=== PATIENT | female | born 1965 | race Caucasian/White ===

== ENCOUNTER 2018-05-19 05:51 | Outpatient (CLI) | payer BC ==
[~2018-05-19] VITALS: Ht 162.6 cm; Wt 59.9 kg
[2018-05-19] MEDS ORDERED: ZOLP12.546 PO (11:40)
[2018-05-19] MEDS ORDERED: DESO1TAB68 PO (11:40)
[2018-05-19] MEDS ORDERED: MONT10TA21 PO (11:40)
[2018-05-19] MEDS ORDERED: CETI10TA20 PO (11:40)
== END 2018-05-19 11:56 ==
LOC: PREOP 05:51
PROVIDERS: ATTEND Surgery
DX: Z01.818 Encounter for other preprocedural examination (principal); K92.1 Melena; Z80.0 Family history of malignant neoplasm of digestive organs

== ENCOUNTER 2018-05-20 07:35 | Day surgery (SDC) | payer BC ==
[~2018-05-20] VITALS: Ht 162.6 cm; Wt 59.9 kg
[~2018-05-20 07:35] MED LIST: CETI10TA20 PO; DESO1TAB68 PO; MONT10TA21 PO; ZOLP12.546 PO
--- NOTE | 2018-05-20 07:48 | Progress Note-Pre Operative ---
Pre-Operative Progress Note H&P Reviewed The H&P was reviewed, patient examined and no changes noted. Date Seen by Provider: May 20, 2018 Time Seen by Provider: 07:45 Date H&P Reviewed: May 20, 2018 Time H&P Reviewed: 07:45 Pre-Operative Diagnosis: Family history of Colon Cancer, bright red Blood in stool JAMES DAY APRN May 20, 2018 7:48 am
[2018-05-20 07:50] VITALS: BP 179/97
--- NOTE | 2018-05-20 07:51 | Conscious Sedation/ASA ---
Conscious Sedation Pre-Proced Time Reviewed: 07:45 ASA Class: 1 Airway Mallampati Classification: ([place] appropriate class) I. II. III, IV Lungs Heart ASA score ASA 1: a normal healthy patient ASA 2: a patient with a mild systemic disease (mid diabetes, controlled hypertension, obesity ASA 3: a patient with a severe systemic disease that limits activity (angina , COPD, prior Myocardial infarction) ASA 4: a patient with an incapacitating disease that is a constant threat to life (CHF, renal failure) ASA 5: a moribund patient not expected to survive 24 hrs. (ruptured aneurysm) ASA 6: a declared brain patient whose organs are being harvested. For emergent operations, add the letter E after the classification Grade 1 Sedation Plan: Analgesia, Amnesia, Plan communicated to team members, Discussed options with patient/fam, Discussed risks with patient/fam Note The patient is an appropriate candidate to undergo the planned procedure, sedation, and anesthesia. The patient immediately re-assessed prior to indication. JAMES DAY APRN May 20, 2018 7:51 am
[2018-05-20] MEDS ORDERED: NS IV 500 ML 500 ML ONE ×2 (07:53→09:14)
[2018-05-20] MEDS ORDERED: LIDOCAINE JELLY 2% (XYLOCAINE) 5 ML TUBE MM PRN (08:00)
[2018-05-20] MEDS: NS IV 500 ML 500 ML IV PRN ×2 (08:10→09:15)
[2018-05-20] MEDS ORDERED: LIDOCAINE JELLY 2% (XYLOCAINE) 5 ML TUBE ONE (08:42)
[2018-05-20] MEDS ORDERED: fentaNYL INJECTION 100 MCG/2 ML AMP ONE ×2 (08:42)
[2018-05-20] MEDS ORDERED: MIDAZOLAM 2 MG/2 ML (VERSED) VIAL ONE ×6 (08:43→09:03)
[2018-05-20] MEDS: fentaNYL INJECTION 100 MCG/2 ML AMP IVP PRN ×4 (08:53→09:15)
[2018-05-20] MEDS: MIDAZOLAM 2 MG/2 ML (VERSED) VIAL IVP PRN ×6 (08:58→09:18)
[2018-05-20 10:10] VITALS: BP 169/81
[2018-05-20 10:40] VITALS: BP 163/85
[2018-05-20 10:50] VITALS: BP 163/85
--- NOTE | 2018-05-20 14:21 | OPERATIVE REPORT ---
DATE OF SERVICE: 05/20/2018 ATTENDING PRIMARY CARE PHYSICIAN: Dr. Weinstein. PREOPERATIVE DIAGNOSES: Rectal bleeding, family history of colon cancer. POSTOPERATIVE DIAGNOSES: Chronic mild stage II external and internal hemorrhoids, not actively edematous or inflamed and no bleeding. A small polyp of the descending colon, 2 mm in size. PROCEDURE: Colonoscopy with biopsy. SURGEON: Chintan Mullins MD ANESTHESIA: Conscious sedation. ESTIMATED BLOOD LOSS: Minimal. FINDINGS: Chronic stage II external and internal hemorrhoids, not actively edematous nor inflamed and no bleeding. No fissures identified. There was a small polyp of the descending colon near the splenic flexure, which was small and pedunculated approximately 2 mm in size. Remainder of the colon was normal. DISPOSITION: The patient tolerated the procedure well. INDICATION: The patient is a 52-year-old female, who has had episodes of bright red blood per rectum. She reports that this has been occurring on an intermittent basis for the past several months. She reports that she has had a longstanding history of constipation, which is also intermittent and related to food that she eats. She did have a colonoscopy approximately 10 years ago and believes this to be normal. She does have a family history of colon cancer with her father being diagnosed with the disease at age 69. DESCRIPTION OF PROCEDURE: The patient was brought to the endoscopy suite, laid in the left lateral decubitus position. After adequate IV pain and sedating medications and conscious sedation anesthesia, a digital rectal examination was performed. Mild stage II chronic external and internal hemorrhoids were identified, which were not actively edematous or inflamed and no bleeding. Normal sphincter tone was felt and there were no palpable masses. The endoscope was then intubated to the anus and rectum gently insufflated. The endoscope was then advanced to the valves of Smith of the rectum with no polyps or any neoplasms. We then proceeded through the sigmoid colon where no diverticulosis identified. The endoscope was then advanced to the descending colon and at approximately just distal to the splenic flexure was a small pedunculated polyp approximately 2 mm in size. This was biopsied and destroyed using forceps and electrocautery with visualization of good hemostasis. The endoscope was then advanced through the remainder of the transverse, ascending colon to the cecum. These segments were normal. There were no mucosal inflammatory changes as well as no neoplasms identified. The endoscope was then slowly withdrawn while taking a second look and suctioning of residual air with no additional findings. The patient tolerated the procedure well. We will recommend medical management with a high fiber diet with at least 25 to 30 grams of fiber per day as well as copious amounts of water on a daily basis to promote soft stools on a daily basis. We will await the biopsy results; however, due to her first degree of family history of colon cancer, we will recommend a followup colonoscopy in 5 years. Job ID: [id number] DocumentID: [id number] Dictated Date: 05/20/2018 09:35:23 Motorcycle Police Officer Date: 05/20/2018 14:20:33 Dictated By: CHINTAN MULLINS MD
== END 2018-05-20 11:00 | disposition home or self-care (01) ==
LOC: ENDO 07:35
PROVIDERS: ATTEND Surgery
DX: D12.4 Benign neoplasm of descending colon (principal); K64.1 Second degree hemorrhoids; K62.5 Hemorrhage of anus and rectum; Z80.0 Family history of malignant neoplasm of digestive organs
CPT/HCPCS: 84703

== ENCOUNTER 2021-05-21 05:44 | Outpatient (CLI) | payer BC ==
[~2021-05-21] VITALS: Ht 162.6 cm; Wt 62.7 kg
[~2021-05-21 05:44] MED LIST changes: -CETI10TA20 PO; +CETI10TA49 PO; +NF-ZOL12.5 PO; -ZOLP12.546 PO
[2021-05-21] MEDS ORDERED: FLUT9.9S16 NS (14:26)
[2021-05-21] MEDS ORDERED: PROG100C11 PO (14:26)
[2021-05-21] MEDS ORDERED: CIDE500T PO (14:26)
[2021-05-21] MEDS ORDERED: MAGN100T6 PO (14:26)
[2021-05-21] MEDS ORDERED: MV-M1TAB20 PO (14:26)
[2021-05-21] MEDS ORDERED: ASCO500C17 PO (14:26)
== END 2021-05-21 15:41 | disposition home or self-care (01) ==
LOC: PREOP 05:44
PROVIDERS: ATTEND Internal Medicine
DX: Z01.818 Encounter for other preprocedural examination (principal)

== ENCOUNTER 2021-05-24 07:21 | Day surgery (SDC) | payer BC ==
[~2021-05-24] VITALS: Ht 162.6 cm; Wt 62.7 kg
[~2021-05-24 07:21] MED LIST changes: +ASCO500C17 PO; +CIDE500T PO; +FLUT9.9S16 NS; +MAGN100T6 PO; +MV-M1TAB20 PO; +PROG100C11 PO
[2021-05-24] MEDS ORDERED: MIDAZOLAM 2 MG/2 ML (VERSED) VIAL ONE (07:31)
[2021-05-24] MEDS ORDERED: PROPOFOL INJECTION 50 ML IV ONE (07:31)
[2021-05-24] MEDS ORDERED: LACTATED RINGERS 1,000 ML IV STA (07:40)
[2021-05-24] MEDS ORDERED: LACTATED RINGERS 1,000 ML IV ONE (07:40)
--- NOTE | 2021-05-24 07:42 | Pre-Op Note & Conscious Sedat ---
Pre-Operative Progress Note H&P Reviewed The H&P was reviewed, patient examined and no changes noted. Date H&P Reviewed: May 24, 2021 Time H&P Reviewed: 07:41 Conscious Sedation Pre-Proced ASA Score 1 For ASA 3 and 4: Consider anesthesia and medical clearance. Also, for patients with a history of failed moderate sedation consider anesthesia. Airway Lungs Heart ASA score ASA 1: a normal healthy patient ASA 2: a patient with a mild systemic disease (mid diabetes, controlled hypertension, obesity ASA 3: a patient with a severe systemic disease that limits activity (angina, COPD, prior Myocardial infarction) ASA 4: a patient with an incapacitating disease that is a constant threat to life (CHF, renal failure) ASA 5: a moribund patient not expected to survive 24 hrs. (ruptured aneurysm) ASA 6: a declared brain- patient whose organs are being harvested. For emergent operations, add the letter E after the classification Mallampati Classification Grade 1 Sedation Plan Analgesia, Amnesia, Plan communicated to team members, Discussed options with patient/fam, Discussed risks with patient/fam The patient is an appropriate candidate to undergo the planned procedure, sedation, and anesthesia. The patient immediately re-assessed prior to indication. SILVIO BERMUDEZ MD May 24, 2021 07:42
[2021-05-24] MEDS ORDERED: LIDOCAINE JELLY 2% 6 ML SYRINGE MM PRN (07:45)
[2021-05-24 08:01] VITALS: BP 144/89
[2021-05-24 09:10] VITALS: BP 118/67
[2021-05-24 09:30] VITALS: BP 134/77
[2021-05-24 09:46] VITALS: BP 134/77
--- NOTE | 2021-05-24 11:04 | Anesthesia-General Post-Op ---
MAC Patient Condition Mental Status/LOC: Same as Preop Cardiovascular: Satisfactory Nausea/Vomiting: Absent Respiratory: Satisfactory Pain: Controlled Complications: Absent Post Op Complications Complications None Follow Up Care/Instructions Patient Instructions None needed. Anesthesiology Discharge Order Discharge Order Patient is doing well, no complaints, stable vital signs, no apparent adverse anesthesia problems. No complications reported per nursing. MILLY NAVARRETE CRNA May 24, 2021 11:04
--- NOTE | 2021-05-24 19:12 | OPERATIVE REPORT ---
DATE OF SERVICE: COLONOSCOPY SUMMARY INDICATION FOR THE PROCEDURE: Screening colonoscopy with history of past colon polyps and family history of colon cancer. DESCRIPTION OF PROCEDURE: The patient was placed in the left lateral decubitus position. Prior to undergoing colonoscopy, digital rectal evaluation was performed. Anal sphincter tone was normal and the perianal reflexes intact. No abnormalities were noted on digital inspection of anal canal or distal rectal vault. The colonoscope was inserted into the rectum and under direct visualization advanced to cecum. The cecum was identified by identification of ileocecal valve and cecal strap. Photographic documentation was obtained. Careful inspection was made as the colonoscope withdrawn. Quality of prep was good. FINDINGS: There was no evidence for internal or external hemorrhoids. The rectum was unremarkable. Present in the distal sigmoid colon was a diminutive 3 mm sessile hyperplastic-appearing polyp. It was biopsied and ablated and submitted for histopathology with no blood loss. The remainder of the sigmoid colon, descending colon, splenic flexure, transverse colon, hepatic flexure, ascending colon and cecum were unremarkable. ASSESSMENT: One diminutive hyperplastic-appearing polyp was removed from the distal sigmoid colon via hot forceps with no subsequent blood loss. This was an otherwise normal colonoscopy to the cecum. Considering family history, I would advocate consideration for repeat surveillance colonoscopy in 5 years as long as there are no surprise on histopathology report. I thank you for the referral. Job ID: [id number] DocumentID: [id number] Dictated Date: 05/24/2021 09:09:09 Sewer Pipe Sorter Date: 05/24/2021 13:01:56 Dictated By: SILVIO BERMUDEZ MD MTDD
--- NOTE | 2021-05-27 13:15 | HISTORY AND PHYSICAL ---
DATE OF SERVICE: 05/24/2021 COLONOSCOPY HISTORY AND PHYSICAL HISTORY OF PRESENT ILLNESS: The patient is a 55-year-old white female referred by Dr. Weinstein for surveillance colonoscopy. She has a past history of colon polyps. She had a tubular adenoma removed from the descending colon three years ago and there is a family history for colon cancer, the index case being her father diagnosed around the age of 69. She denies any recent problems with melena or GI bleeding, has had no bowel habit change or change in weight. PAST SURGICAL HISTORY: Significant for cataract surgery at the age of 42. She reports no other surgeries. PAST MEDICAL HISTORY: Significant for allergic rhinitis, she takes Singulair and Zyrtec for this and is on hormonal replacement therapy. She has some anxiety for which she occasionally takes alprazolam. 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 She has no past smoking history and occasional small volume alcohol intake. REVIEW OF SYSTEMS: CONSTITUTIONAL: Denies night sweats, chills, fever or change in weight. CARDIOVASCULAR: Denies chest pain, orthopnea, PND, pedal edema, syncope or presyncope. PULMONARY: Denies cough, wheezing or shortness of breath. GASTROINTESTINAL: As noted in the HPI. PHYSICAL EXAMINATION: GENERAL: Reveals a well-appearing white female appeared to be in no acute distress. VITAL SIGNS: Blood pressure 150/100 at the beginning of the interview and the patient is a little bit anxious about being here at the end 136/78, weight 138 pounds. HEENT: Unremarkable. Sclerae nonicteric. CHEST: Clear. CARDIOVASCULAR: Reveals a regular rate and rhythm without murmur, S3 or S4. ABDOMEN: Soft, supple without mass, organomegaly or tenderness. EXTREMITIES: Reveal no cyanosis, clubbing or edema. ASSESSMENT AND PLAN: The patient is being set up for surveillance colonoscopy due to past history of colon polyps as well as a family history for colon cancer, index case being her father diagnosed around age 69. Prep instructions were given and questions were answered. Job ID: [id number] DocumentID: [id number] Dictated Date: 05/16/2021 17:42:32 Computer Systems Designer Date: 05/16/2021 18:05:56 Dictated By: SILVIO BERMUDEZ MD <Dictated by SILVIO BERMUDEZ MD> <Electronically signed by SILVIO BERMUDEZ MD> 05/17/21 1141 MTDD
== END 2021-05-24 09:45 | disposition home or self-care (01) ==
LOC: ENDO 07:21
PROVIDERS: ATTEND Internal Medicine
DX: Z12.11 Encounter for screening for malignant neoplasm of colon (principal); K63.5 Polyp of colon; J30.9 Allergic rhinitis, unspecified; F41.9 Anxiety disorder, unspecified; Z79.899 Other long term (current) drug therapy; Z80.0 Family history of malignant neoplasm of digestive organs
CPT/HCPCS: 84703

== ENCOUNTER → 2022-07-02 | Outpatient (CLI) | payer BC ==
--- NOTE | 2022-07-02 09:04 | Diagnostic Imaging Report ---
PROCEDURE: US Thyroid. TECHNIQUE: Multiple Real-time grayscale images were obtained of the thyroid in various projections. INDICATION: Thyroid mass. FINDINGS: The right lobe of the thyroid measures 5.7 x 2.4 x 2.1 cm. The left lobe measures 5.3 x 2.3 x 2.6 cm. The isthmus measures 4 mm. There are two small cysts in the isthmus of the thyroid eccentric to the right measuring 1.3 cm and 0.6 cm in diameter respectively. These have a benign appearance and do not require followup. IMPRESSION: There are small colloid cysts in the isthmus. The thyroid ultrasound is otherwise unremarkable. Dictated by: Dictated on workstation # [id number]
== END ==
LOC: RAD 08:00
PROVIDERS: ATTEND Surgery
DX: E04.2 Nontoxic multinodular goiter (principal)
CPT/HCPCS: 76536